=== PATIENT | female | born 1945 | race Two or more races ===

== ENCOUNTER 2025-07-10 21:31 | Emergency (ER) | payer OTHER ==
[~2025-07-10] VITALS: Ht 170.2 cm; Wt 85.7 kg
[2025-07-10] MEDS ORDERED: INDERAL LA80 MG (22:15)
[2025-07-10] MEDS ORDERED: SYNTHROID175 MCG PO (22:16)
[2025-07-10] MEDS ORDERED: TRAMADOL HCL E100 M1 (22:17)
[2025-07-10] MEDS ORDERED: ATIVAN1 M1 PO (22:17)
[2025-07-10] MEDS ORDERED: PRESION (22:18)
[2025-07-10] MEDS ORDERED: hydrALAZINE HCL 20 MG VIAL IV ONE (22:30)
[2025-07-10 23:09] LABS: BASO % 0.7 % (0.1-1.2); EOS # 0.33 (0.04-0.54); EOS % 3.4 % (0.7-7.0); LYMPH # 2.10 (1.18-3.74); LYMPH % 21.7 % (19.3-53.1); MEAN PLATELET VOLUME 12.10 fl (9.4-12.4); MONO # 0.82 (0.24-0.82); MONO % 8.5 % (4.7-12.5); NEUT # 6.31 (1.56-6.13); NEUT % 65.2 % (34.0-71.1); RED CELL DISTRIBUTION WIDTH 13.3 % (11.6-14.4)
[2025-07-10] MEDS ORDERED: hydrALAZINE HCL 20 MG VIAL ONE (23:19)
[2025-07-10 23:28] LABS: INR 1.05
[2025-07-10 23:33] LABS: ALT/SGPT 18.0 U/L (12-78); AST/SGOT 12.0 U/L (15-37); BILIRUBIN TOTAL 0.45 mg/dL (0.3-1.2); BUN CREA RATIO 25.0 (7.0-25.0); CREATININE SERUM 1.25 mg/dL (0.55-1.02); GFR 41.56; GLOBULINA 3.5 G/DL (2.4-3.5); GLUCOSE FASTING 125.0 mg/dL (65-100); LDH 176.0 U/L (84-246); OSMOLALITY SERUM 289.0 MOSM/KG (275-295); PHOSPHOKINASE CREATININE 33.0 U/L (26-192)
[2025-07-10 23:55] LABS: COVID-19 AG NEGATIVE (NEGATIVE)
== END 2025-07-11 00:17 | disposition home or self-care (01) ==
LOC: ER 21:31
PROVIDERS: General Practice
DX: I16.9 Hypertensive crisis, unspecified (principal); I10 Essential (primary) hypertension; Z88.0 Allergy status to penicillin; Z91.013 Allergy to seafood; Z20.822 Contact with and (suspected) exposure to COVID-19